=== PATIENT | female | born 1940 | race Caucasian/White ===

== ENCOUNTER 2016-07-25 09:37 | Emergency (ER) | payer MEDICARE, BC ==
--- NOTE | 2016-07-25 11:03 | UC ---
Abdominal Pain Female HPI - HPI Summary HPI Summary: patient has a significant history of diverticulitis. has had 4 episodes over the past 15 years. patient has had on and off pain for the past 5 months. Currently has not had any pain for the past two weeks. Bowel movements have been regular and normal. She was alos told by a former doctor in 1998 that she had a small hernia and did not know if maybe the pain was from the hernia. she has had no fever. no N/V/D. came into UC today becasue she heard the weather was going to be bad this week and didnt want to try to get to her doctors appointment this week. - History of Current Complaint Chief Complaint: UCAbdominalPain Stated Complaint: LEFTSIDE ABD PAIN Time Seen by Provider: 07/25/16 10:38 Hx Obtained From: Patient Hx Last Menstrual Period: n/a ?: No Onset/Duration: Still Present - comes and goes over the past few months Severity Initially: Mild Severity Currently: None Pain Intensity: 0 Pain Scale Used: 0-10 Numeric Location: Other - generally pain is left sided Radiates: No Character: Dull Aggravating Factor(s): Nothing Alleviating Factor(s): Nothing Associated Signs and Symptoms: Positive: Negative Allergies/Adverse Reactions: Allergies Allergy/AdvReac Type Severity Reaction Status Date / Time Ciprofloxacin Allergy Rash Verified 06/11/16 13:57 Naproxen Allergy Rash Verified 06/11/16 13:57 Hydrochlorothiazide AdvReac heart Verified 06/11/16 13:57 regularity changes Prednisone AdvReac BP too high Verified 06/11/16 13:57 Sulfa Drugs AdvReac cardiac Verified 06/11/16 13:57 problems PMH/Surg Hx/FS Hx/Imm Hx Previously Healthy: Yes Endocrine History Of: Denies: Diabetes, Hypothyroidism Cardiovascular History Of: Reports: Hypertension, Atrial Fibrillation - think she has history Denies: Pacemaker/ICD GI/ History Of: Denies: Renal Disease Cancer History Of: Denies: Breast Cancer - Surgical History Surgical History: Yes Surgery Procedure, Year, and Place: HYSTERECTOMY 2001. BIOPSY LEFT BREAST 1995 AND 2008. 3 COLONOSCOPIES. L Cataract 2013. 07/2014 thyroid nodule bx--benign - Family History Known Family History: Positive: Cardiac Disease, Hypertension - Social History Alcohol Use: None Substance Use Type: None Smoking Status (MU): Never Smoked Tobacco - Immunization History Most Recent Influenza Vaccination: [id number] Most Recent Tetanus Shot: 2014 Review of Systems Constitutional: Negative Skin: Negative Eyes: Negative ENT: Negative Respiratory: Negative Cardiovascular: Negative Gastrointestinal: Abdominal Pain Genitourinary: Negative Motor: Negative Neurovascular: Negative Musculoskeletal: Negative Neurological: Negative Psychological: Negative All Other Systems Reviewed And Are Negative: Yes Physical Exam Triage Information Reviewed: Yes Appearance: Well-Appearing, No Pain Distress, Well-Nourished Vital Signs: Initial Vital Signs Temp 98.1 F 07/25/16 10:01 Pulse 104 07/25/16 10:01 Resp 16 07/25/16 10:01 Pulse Ox 100 07/25/16 10:01 Vital Signs Reviewed: Yes Eye Exam: Normal Eyes: Positive: Conjunctiva Clear ENT Exam: Normal ENT: Positive: Normal ENT inspection, Pharynx normal, TMs normal Dental Exam: Normal Neck exam: Normal Neck: Positive: Supple, Nontender, No Lymphadenopathy Respiratory Exam: Normal Respiratory: Positive: Chest non-tender, Lungs clear, Normal breath sounds Cardiovascular Exam: Normal Cardiovascular: Positive: RRR, No Murmur, Pulses Normal Abdominal Exam: Normal Abdomen Description: Positive: Nontender, No Organomegaly, Soft Bowel Sounds: Positive: Present Musculoskeletal Exam: Normal Musculoskeletal: Positive: Strength Intact, No Edema, ROM Limited @ - left shoulder, from previous injury Neurological Exam: Normal Neurological: Positive: Alert, Muscle Tone Normal Psychological Exam: Normal Psychological: Positive: Age Appropriate Behavior Abd Pain Female Course/Dx - Course Course Of Treatment: hx obtianed, medications reviewed, at this time patients abdomen is slightly tender on palpation, hernia was not felt. patients pain is very come and go and states it is mild, not associated with eating or BM's. CBC was drawn to rule out WBC elevation. recommended follow up with PCP if symptoms return. - Differential Dx/Diagnosis Differential Diagnosis: Bowel Obstruction, Constipation, Diverticulitis, Irritable Bowel Syndrome, Pancreatitis, Pelvic Inflammatory Disease, Urinary Tract Infection Provider Diagnoses: abdominal pain. possible diverticulitis vs hernia Discharge - Discharge Plan Condition: Stable Disposition: HOME Patient Education Materials: Abdominal Pain (ED) Additional Instructions: A CBC was taken today to check for any infection. We will call you if treatment needs to be started. In the mean time, make sure you are eating and drinking well. Follow up with any increasing pain or symptoms.
[2016-07-26 11:04] LABS: Hematocrit 40 % (35-47); Hemoglobin 13.4 g/dl (12.0-16.0); Mean Corpuscular HGB Conc 33 g/dl (31-36); Mean Corpuscular Hemoglobin 29 pg (27-31); Mean Corpuscular Volume 87 fL (80-97); Mean Platelet Volume 8 um3 (7.4-10.4); Red Blood Count 4.62 10^6/ul (4.0-5.4); Red Cell Distribution Width 13 % (10.5-15); White Blood Count 4.8 10^3/ul (3.5-10.8)
== END 2016-07-25 11:11 | disposition home or self-care (01) ==
LOC: UCCORT 09:37
DX: R10.9 Unspecified abdominal pain (principal); Z98.42 Cataract extraction status, left eye; Z88.1 Allergy status to other antibiotic agents; Z88.2 Allergy status to sulfonamides; Z88.6 Allergy status to analgesic agent; Z88.8 Allergy status to other drugs, medicaments and biological substances
CPT/HCPCS: 36415; 85025; 99211; G0463

== ENCOUNTER 2016-08-22 14:04 | Emergency (ER) | payer MEDICARE, BC ==
[2016-08-22 15:14] VITALS: BP 156/60
--- NOTE | 2016-08-22 16:30 | UC ---
Complaint Female HPI - HPI Summary HPI Summary: 76yo F states she has had frequency and dysuria x 2 days. States she did the AZO test for leukocytes and it came back positive 2 days in a row. Pt brought the strip to show me, and indeed it is positive for leukocytes, negative for nitrites. - History Of Current Complaint Chief Complaint: UCGU Stated Complaint: URINARY COMPLAINT Time Seen by Provider: 08/22/16 16:23 Hx Obtained From: Patient Hx Last Menstrual Period: n/a Onset/Duration: Gradual Onset, Lasting Days, Still Present Severity Initially: Moderate Severity Currently: Moderate Pain Intensity: 5 Pain Scale Used: 0-10 Numeric Character: Burning Aggravating Factor(s): Nothing Alleviating Factor(s): Nothing Associated Signs And Symptoms: Positive: Negative Related Hx: Similar Episode/Dx as: - UTI - Allergies/Home Medications Allergies/Adverse Reactions: Allergies Allergy/AdvReac Type Severity Reaction Status Date / Time Ciprofloxacin Allergy Rash Verified 08/22/16 15:14 Naproxen Allergy Rash Verified 08/22/16 15:14 Hydrochlorothiazide AdvReac heart Verified 08/22/16 15:14 regularity changes Prednisone AdvReac BP too high Verified 08/22/16 15:14 Sulfa Drugs AdvReac cardiac Verified 08/22/16 15:14 problems PMH/Surg Hx/FS Hx/Imm Hx Previously Healthy: No - gout Endocrine History Of: Reports: Thyroid Disease - nodule Cardiovascular History Of: Reports: Hypertension, Atrial Fibrillation - think she has history GI/ History Of: Denies: Renal Disease Cancer History Of: Denies: Breast Cancer - Surgical History Surgical History: Yes Surgery Procedure, Year, and Place: HYSTERECTOMY 2001. BIOPSY LEFT BREAST 1995 AND 2008. 3 COLONOSCOPIES. L Cataract 2013. 07/2014 thyroid nodule bx--benign - Family History Known Family History: Positive: Cardiac Disease, Hypertension - Social History Alcohol Use: None Substance Use Type: None Smoking Status (MU): Never Smoked Tobacco - Immunization History Most Recent Influenza Vaccination: [id number] Most Recent Tetanus Shot: 2013 Review of Systems Constitutional: Negative Skin: Negative Eyes: Negative ENT: Negative Respiratory: Negative Cardiovascular: Negative Gastrointestinal: Negative Genitourinary: Dysuria, Urgency Motor: Negative Neurovascular: Negative Musculoskeletal: Negative Neurological: Negative Psychological: Negative All Other Systems Reviewed And Are Negative: Yes Physical Exam Triage Information Reviewed: Yes Appearance: No Pain Distress, Well-Nourished, Ill-Appearing Vital Signs: Initial Vital Signs Temp 97.7 F 08/22/16 15:09 Pulse 110 08/22/16 15:09 Resp 18 08/22/16 15:09 BP 156/60 08/22/16 15:09 Pulse Ox 100 08/22/16 15:09 tachycardia noted Vital Signs Reviewed: Yes Eyes: Positive: Conjunctiva Clear ENT: Positive: Normal ENT inspection, Hearing grossly normal. Negative: Muffled /hoarse voice Neck: Positive: Supple, Nontender, No Lymphadenopathy Respiratory: Positive: No respiratory distress Cardiovascular: Positive: RRR, Pulses Normal, Brisk Capillary Refill Abdomen Description: Positive: Nontender, No Organomegaly, Soft. Negative: CVA Tenderness (R), CVA Tenderness (L), Distended, Guarding, McBurney's Point Tenderness, Peritoneal Signs, Pulsatile Mass Bowel Sounds: Positive: Present Musculoskeletal: Positive: Strength Intact, ROM Intact Neurological: Positive: Alert, Muscle Tone Normal Psychological Exam: Normal Skin Exam: Normal Complaint Female Dx - Differential Dx/Diagnosis Differential Diagnosis/HQI/PQRI: Ureteral Stone, Urinary Tract Infection Provider Diagnoses: UTI. dysuria Discharge - Discharge Plan Condition: Stable Disposition: HOME Prescriptions: Nitrofurantoin Monohyd Macro [Macrobid] 100 mg PO BID #10 cap Patient Education Materials: Urinary Tract Infection in Women (ED), Dysuria (ED ) Referrals: Quique Curiel MD [Primary Care Provider] - Additional Instructions: We have sent a culture on your urine. We have given you a prescription for antibiotics even though the urine dipstick was negative on our test, but we are believing the two AZO tests that you did at home that showed leukocytes. We will contact you if you should stop the antibiotic. Follow up with Dr. Curiel if you still have symptoms.
== END 2016-08-22 17:04 | disposition home or self-care (01) ==
LOC: UCCORT 14:04
DX: N39.0 Urinary tract infection, site not specified (principal); Z88.1 Allergy status to other antibiotic agents; Z88.6 Allergy status to analgesic agent; Z88.2 Allergy status to sulfonamides; Z88.8 Allergy status to other drugs, medicaments and biological substances
CPT/HCPCS: 87086; 99212; G0463

== ENCOUNTER 2017-02-13 20:27 | Emergency (ER) | payer MEDICARE, BC ==
[2017-02-13] MEDS ORDERED: DOXYcycline CAP(*) 100 MG PO ONE (21:04)
[2017-02-13 21:08] VITALS: BP 140/58
--- NOTE | 2017-02-13 21:08 | UC ---
Skin Complaint HPI - HPI Summary HPI Summary: 76 y/o female presents to the urgent care c/o possible tick bite on her left arm today at 1700. She was outside in the yard by the apple tree where rain deers had been. She felt something bit her and she automatically remove it. She has HX of tick bite in 2014, and 2016 for which she got prophylactic treatment. She denies fever, SOB, chest pain, N/V/D, joint pains. Pt has not other complains - History of Current Complaint Chief Complaint: UCSkin Time Seen by Provider: 02/13/17 20:46 Stated Complaint: LEFT ARM SKIN COMPLAINT Hx Obtained From: Patient Hx Last Menstrual Period: n/a Onset/Duration: Sudden Onset, Lasting Hours, Still Present Skin Exposure Onset/Duration: Hours Ago Onset Severity: Mild Current Severity: Mild Pain Intensity: 0 Pain Scale Used: 0-10 Numeric Location: Discrete Character: Pruritus, Redness Aggravating: Touch Alleviating: Nothing Associated Signs & Symptoms: Negative: Nausea, Vomiting, Numbness, Fever, Tenderness Related History: Possible Reaction to: Insect - Allergy/Home Medications Allergies/Adverse Reactions: Allergies Allergy/AdvReac Type Severity Reaction Status Date / Time Ciprofloxacin Allergy Rash Verified 02/13/17 20:32 Naproxen Allergy Rash Verified 02/13/17 20:32 Hydrochlorothiazide AdvReac heart Verified 02/13/17 20:32 regularity changes Prednisone AdvReac BP too high Verified 02/13/17 20:32 Sulfa Drugs AdvReac cardiac Verified 02/13/17 20:32 problems Review of Systems Constitutional: Negative Skin: Rash - LF forearm with tick bite Eyes: Negative ENT: Negative Respiratory: Negative Cardiovascular: Negative Gastrointestinal: Negative Genitourinary: Negative Motor: Negative Neurovascular: Negative Musculoskeletal: Negative Neurological: Negative Psychological: Negative All Other Systems Reviewed And Are Negative: Yes PMH/Surg Hx/FS Hx/Imm Hx Previously Healthy: Yes Cardiovascular History: Hypertension - Surgical History Surgical History: Yes Surgery Procedure, Year, and Place: HYSTERECTOMY 2001. BIOPSY LEFT BREAST 1995 AND 2008. 3 COLONOSCOPIES. L Cataract 2013. 07/2014 thyroid nodule bx--benign - Family History Known Family History: Positive: Cardiac Disease, Hypertension, Diabetes - Social History Alcohol Use: None Substance Use Type: None Smoking Status (MU): Never Smoked Tobacco - Immunization History Most Recent Influenza Vaccination: [id number] Most Recent Tetanus Shot: 2014 Physical Exam Triage Information Reviewed: Yes Appearance: Well-Appearing, No Pain Distress, Well-Nourished Vital Signs: Initial Vital Signs Temp 98.8 F 02/13/17 20:34 Pulse 86 02/13/17 20:34 Resp 18 02/13/17 20:34 BP 140/58 02/13/17 20:34 Pulse Ox 99 02/13/17 20:34 Vital Signs Reviewed: Yes Eye Exam: Normal Eyes: Positive: Conjunctiva Clear - PERRLA, EOMI ENT Exam: Normal ENT: Positive: Normal ENT inspection, Hearing grossly normal, Pharynx normal, TMs normal Dental Exam: Normal Neck exam: Normal Neck: Positive: Supple, Nontender, No Lymphadenopathy Respiratory Exam: Normal Respiratory: Positive: Chest non-tender, Lungs clear, Normal breath sounds Cardiovascular Exam: Normal Cardiovascular: Positive: RRR, No Murmur, Pulses Normal, Brisk Capillary Refill Abdominal Exam: Normal Abdomen Description: Positive: Nontender, No Organomegaly, Soft. Negative: CVA Tenderness (R), CVA Tenderness (L) Bowel Sounds: Positive: Present Musculoskeletal Exam: Normal Musculoskeletal: Positive: Strength Intact, ROM Intact, No Edema Neurological Exam: Normal Psychological Exam: Normal Skin: Positive: rashes - LF with discrete erythema s/p tick bite non tender or swollen. Course/Dx - Course Course Of Treatment: 76 y/o female presents to the urgent care c/o possible tick bite on her left arm today at 1700. She was outside in the yard by the apple tree where rain deers had been. She felt something bit her and she automatically remove it. She ahs HX of tick bite in 2014, and 2015 for which she got prophylactic treatment. She denies fever, SOB, chest pain, N/V/D, joint pains. Pt has not other complains. HX obtained. Pt given prophylactic treatment of Doxyxycline 2 tabs PO for lyme disease. Pt tolerated well medication, educated on Lyme and if she develops eirthema migrans rash, fever, joint pains or WADE to return to the urgent care or f/u with her PCP for furhter treatment. Pt understood and agreed - Differential Diagnoses - Skin Complaint Differential Diagnoses: Allergic Reaction, Cellulitis, Contact Dermatitis, Tick Born Illness, Urticaria - Diagnoses Provider Diagnoses: 1- Tick bite Discharge - Discharge Plan Condition: Stable Disposition: HOME Patient Education Materials: Tick Bite (ED) Referrals: Quique Curiel MD [Primary Care Provider] - If Needed Additional Instructions: Please observe the area for the development or Erythema Migrans for upto 30 days following exposure. Components of the tick saliva can cause transient erythema that should not be confused with Erythema Migrans. Antibiotic prophylaxis with Doxycycline given to you today to prevent lyme Disease.. If you develop the Erythema Migrans rash and fever and joint pains please return to the urgent care or f/u with your PCP for further treatment.
== END 2017-02-13 21:21 | disposition home or self-care (01) ==
LOC: UCCORT 20:27
DX: S50.862A Insect bite (nonvenomous) of left forearm, initial encounter (principal); W57.XXXA Bitten or stung by nonvenomous insect and other nonvenomous arthropods, initial encounter; Y93.9 Activity, unspecified; Y99.9 Unspecified external cause status; Z88.6 Allergy status to analgesic agent; Z88.1 Allergy status to other antibiotic agents; Z88.2 Allergy status to sulfonamides; Z88.8 Allergy status to other drugs, medicaments and biological substances
CPT/HCPCS: 99211; A9270-GY; G0463

== ENCOUNTER 2017-11-03 19:55 | Emergency (ER) | payer MEDICARE, BC ==
[2017-11-03 20:41] VITALS: BP 153/68
[2017-11-03] MEDS ORDERED: DOXYcycline CAP(*) 100 MG PO ONE (21:19)
--- NOTE | 2017-11-03 21:24 | ED ---
Skin Complaint - HPI Summary HPI Summary: 77 yr old pulled a tick off of her left abdomen this evening that was just burrowing in. She did not have any engorgement. She would like the doxycycline prophylaxis. No other complaints. - History of Current Complaint Chief Complaint: UCSkin Time Seen by Provider: 11/03/17 21:10 Stated Complaint: TICK BITE Hx Last Menstrual Period: n/a Pain Intensity: 0 - Allergy/Home Medications Allergies/Adverse Reactions: Allergies Allergy/AdvReac Type Severity Reaction Status Date / Time ciprofloxacin Allergy Rash Verified 11/03/17 20:31 hydrochlorothiazide Allergy cardiac Verified 11/03/17 20:31 changes naproxen Allergy Rash Verified 11/03/17 20:31 prednisone Allergy hypertensio Verified 11/03/17 20:31 n Sulfa (Sulfonamide Allergy cardiac Verified 11/03/17 20:31 Antibiotics) changes PMH/Surg Hx/FS Hx/Imm Hx Endocrine/Hematology History: Reports: Hx Thyroid Disease - nodule Denies: Hx Diabetes, Hx Anemia Cardiovascular History: Reports: Hx Hypertension Denies: Hx Pacemaker/ICD GI History: Reports: Other GI Disorders - DIVERTICULITIS- LAST EPISODE-11/2013 Denies: Hx Jaundice History: Denies: Hx Renal Disease Musculoskeletal History: Reports: Hx Arthritis - "ALL OVER", Hx Bursitis - HX OF , Other Musculoskeletal History - OSTEOPENIA- LEFT HIP Sensory History: Reports: Hx Cataracts - LEFT EYE, Hx Contacts or Glasses - GLASSES Denies: Hx Hearing Aid Opthamlomology History: Reports: Hx Cataracts - LEFT EYE, Hx Contacts or Glasses - GLASSES Psychiatric History: Denies: Hx Panic Disorder - Cancer History Cancer Type, Location and Year: basal cell cancer right eyebrow 2011 Hx Chemotherapy: No Hx Radiation Therapy: No - Surgical History Surgery Procedure, Year, and Place: HYSTERECTOMY 2001. BIOPSY LEFT BREAST 1995 AND 2008. 3 COLONOSCOPIES. L Cataract 2013. 07/2014 thyroid nodule bx--benign Hx Anesthesia Reactions: No Infectious Disease History: No Infectious Disease History: Denies: Hx Clostridium Difficile, Traveled Outside the [place] in Last 30 Days - Family History Known Family History: Positive: Cardiac Disease, Hypertension, Diabetes - Social History Alcohol Use: None Substance Use Type: Reports: None Smoking Status (MU): Never Smoked Tobacco Review of Systems Constitutional: Negative Positive: Other - tick bite All Other Systems Reviewed And Are Negative: Yes Physical Exam Triage Information Reviewed: Yes Vital Signs On Initial Exam: Initial Vitals Temp Pulse Resp BP Pulse Ox 98.1 F 92 18 153/68 100 11/03/17 20:32 11/03/17 20:32 11/03/17 20:32 11/03/17 20:32 11/03/17 20:32 Vital Signs Reviewed: Yes Appearance: Positive: Well-Appearing, No Pain Distress Skin: Positive: Other - abdominal wall without any redness in area where she removed the tick Eyes: Positive: EOMI ENT: Positive: Normal ENT inspection Neck: Positive: Nontender Respiratory/Lung Sounds: Positive: Clear to Auscultation, Breath Sounds Present Cardiovascular: Positive: RRR. Negative: Murmur Abdomen Description: Positive: Nontender Musculoskeletal: Positive: Strength/ROM Intact Neurological: Positive: Sensory/Motor Intact, Alert, Oriented to Person Place, Time, CN Intact II-III Psychiatric: Positive: Normal - [place] Coma Scale Best Eye Response: 4 - Spontaneous Best Motor Response: 6 - Obeys Commands Best Verbal Response: 5 - Oriented Coma Scale Total: 15 Diagnostics - Vital Signs Vital Signs Temp Pulse Resp BP Pulse Ox 11/03/17 20:32 98.1 F 92 18 153/68 100 - Laboratory Lab Statement: Any lab studies that have been ordered have been reviewed, and results considered in the medical decision making process. Course/Dx - Course Course Of Treatment: 77 yr old with tick bite. Doxy 200 given. - Diagnoses Provider Diagnoses: Tick bite of abdominal wall, Hypertension Discharge - Sign-Out/Discharge Documenting (check all that apply): Discharge/Admit/Transfer - Discharge Plan Condition: Good Disposition: HOME Patient Education Materials: Tick Bite (ED), Hypertension (ED) Referrals: Quique Curiel MD [Primary Care Provider] - - Billing Disposition and Condition Condition: GOOD Disposition: HOME
== END 2017-11-03 21:24 | disposition home or self-care (01) ==
LOC: UCCORT 19:55
DX: S30.861A Insect bite (nonvenomous) of abdominal wall, initial encounter (principal); W57.XXXA Bitten or stung by nonvenomous insect and other nonvenomous arthropods, initial encounter; Y92.9 Unspecified place or not applicable; I10 Essential (primary) hypertension
CPT/HCPCS: 99212; A9270-GY; G0463

== ENCOUNTER 2017-12-09 10:46 | Emergency (ER) | payer MEDICARE, BC ==
--- OUTSIDE RECORDS SUMMARY | 2017-12-09 11:00 | XMS REPORT ---
:1940 External Reference #:[id number] Author Organization [facility] Address [address] [place] [address] Phone [phone] Care Team Providers Name Role Phone Quique Curiel M.D. 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 Primary Care Physician Unavailable Payers Type Date Identification Numbers Payment Provider Subscriber Medicare Primary Policy Number: [id number] Medicare Keith Hebert PayID: [id number] [address] [facility] [place] [address] Commercial Policy Number: [id number] [facility] Keith Hebert PayID: [id number] [address] [address] [place] [address] Problems Description No Information Family History Date Family Member(s) Problem(s) Comments Father due to bulpar palsy () Mother due to Heart Disease () Mother 87 Social History Type Date Description Comments Cigarette Use Never Smoked Cigarettes ETOH Use Rare Use Of Alcohol Recreational Drug Use Never Used Drugs Allergies, Adverse Reactions, Alerts Date Description Reaction Status Severity Comments 11/25/2017 Cipro Urticaria active Moderate 11/25/2017 Naproxen Urticaria active Moderate 11/25/2017 Prednisone elevated bp active Moderate 11/25/2017 Hydrochlorothiazide low potassium active Moderate 11/25/2017 sulfa affects heart rythym active Moderate Medications Medication Date Status Form Strength Qnty SIG Indications Ordering Provider Amlodipine Active Tablets 10mg 1 by Unknown Besylate 00 mouth every day Allopurinol Active Tablets 100mg 1 by Unknown 00 mouth every day Lisinopril Active Tablets 40mg 1 by Unknown 00 mouth every day Vital Signs Date Vital Result Comment 11/25/2017 Weight 155.00 lb Height 60 inches 5'0" BMI (Body Mass Index) 30.3 kg/m2 BP Systolic 147 mmHg BP Diastolic 81 mmHg Heart Rate 106 /min O2 % BldC Oximetry 99 % Body Temperature 97.6 F Pain Level 0 Results Description No Information Procedures Description No Information Plan of Care No Information Available
--- OUTSIDE RECORDS SUMMARY | 2017-12-09 11:00 | XMS REPORT ---
:1940 External Reference #:[id number] Author Organization [facility] Address [address] [place] [address] Phone [phone] Care Team Providers Name Role Phone Quique Curiel M.D. Primary Care Physician Unavailable Payers Type Date Identification Numbers Payment Provider Subscriber Medicare Primary Policy Number: [id number] [facility] Keith Hebert PayID: [id number] [address] [place] [address] Medigap Part B Effective: Policy Number: BS [place] [employer] Keith Hebert 1999 [id number] Group Number: [id number] [address] [address] PayID: [id number] [place] [id number] Problems Date Description Provider Status Onset: Basal cell carcinoma of skin Active Onset: Diverticulitis Active Onset: Atrial fibrillation Active Onset: 12/19/2014 Nuclear senile cataract Caleb Melvin M.D. Active Onset: 12/19/2014 Pseudophakia Caleb Melvin M.D. Active Onset: 03/14/2015 Blepharitis Chantel Stevens O.D. Active Onset: 12/21/2016 Other secondary cataract, left eye Caleb Melvin M.D. 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 Retired ETOH Use Denies alcohol use Smoking Patient has never smoked Recreational Drug Use Denies Drug Use Daily Caffeine Consumes on average 16oz of soda per day Allergies, Adverse Reactions, Alerts Date Description Reaction Status Severity Comments 12/17/2014 Cipro Urticaria active 12/17/2014 Naproxen Urticaria active 12/17/2014 Sulfa Antibiotics Urticaria active 12/17/2014 Prednisone increase BP active 12/17/2014 Hydrochlorothiazide active Medications Medication Date Status Form Strength Qnty SIG Indications Ordering Provider Vitamin D Active Tablets 1000Unit 400 mg Chantel Campbell (Cholecalcifer 015 Rodney, ol) O.D. Warm Active three Chantel Campbell Compresses 015 times a [place], day O.D. Amlodipine 0 Active Tablets 10mg TK 1 T PO Unknown Besylate 000 qd. Lisinopril 0 Active Tablets 40mg TK 1 T PO Unknown 000 qd Allopurinol 0 Active Tablets 100mg TK 1 T PO Unknown 000 qd. Calcium 600 0 Active Tablets 600mg Unknown 000 Tobradex Hx Ointment 0.3-0.1% 1units apply to 373.00 Chantel K. 015 - all four [place], eyelid O.D. 015 margins each night before bed for 2 weeks Maxitrol Hx Ointment 3.5-72015- 3.500g apply 1/4' Chantel K. 015 - 0.1 m to all [place], lids every O.D. 016 night at bedtime x 3 weeks Doxycycline Hx Capsules 100mg Take 2 Unknown Hyclate 000 - Capsules By Mouth 015 AT Once Results Description No Information Procedures Date CPT Code Description Status 06/07/2017 88613 Est Patient Comprehensive Exam Completed 12/21/2016 87022 Determination Of Refractive State Completed 12/21/2016 12261 Est Patient Comprehensive Exam Completed 12/22/2015 27469 Est Patient Comprehensive Exam Completed 03/20/2015 94830 Est Patient Intermediate Exam Completed 12/19/2014 73109 Est Patient Intermediate Exam Completed 04/10/2014 73555 Extracapsular Cataract Extraction W/Intraocular Lens Completed 03/12/2014 47490 Ophthalmic Biometry Completed 03/12/2014 98791 Est Patient Comprehensive Exam Completed 08/07/2013 33730 Determination Of Refractive State Completed 08/07/2013 72137 Est Patient Comprehensive Exam Completed 01/02/2013 54060 Est Patient Comprehensive Exam Completed 01/02/2013 02403 Determination Of Refractive State Completed 12/28/2011 79595 Determination Of Refractive State Completed 12/28/2011 56983 Est Patient Comprehensive Exam Completed 12/23/2010 50331 Est Patient Comprehensive Exam Completed 11/19/2009 57841 Est Patient Comprehensive Exam Completed 06/10/2008 17813 Est Patient Intermediate Exam Completed 11/14/2007 06491 Determination Of Refractive State Completed 11/14/2007 22751 Est Patient Comprehensive Exam Completed 10/13/2005 39469 Determination Of Refractive State Completed 10/13/2005 43803 Est Patient Comprehensive Exam Completed Encounters Type Date Location Provider CPT E/M Dx Office Visit 03/14/2015 11:45a Caleb Melvin MD, Chantel Stevens O.D. 40892 373.00 Plan of Care 12/06/2017 - Caleb Melvin M.D.H25.11 Age-related nuclear cataract, right eyeComments:Smoking can increase the risk of developing or worsening any eye related disease, as well as affect your overall health. If you are a smoker, we strongly recommend that you quit.If you are not a smoker, we strongly recommend that you do not start. You have been diagnosed with a cataract in the righteye. If you are happy with your vision as it is, we will see you at your next scheduled appointment.If you feel like your vision is getting worse before your scheduled appointment, please call Lyubov Summers at .Follow up:6 Month Follow Up Diagnostic Refraction You can expect to have your eyes dilated at your next visit. If Dr. Melvin orders any additional testing , it may require extra time. We recommend that you bring sunglasses, as dilation drops often make you light sensitive until they wear off. We always recommendyou bring someone to drive you home if you are uncomfortable driving with your eyes dilated. If you have any questions before your next visit, feel free to call our office at .H26.492 Other secondary cataract, left eyeComments:There is clouding in the sac that holds your artificial lens in your left eye. We will schedule you an appointment for the YAG Capsulotomy laser with Dr. Melvin. Please read the pamphlet that has been printed out for you. We recommend you bring someone to drive you home.Follow up:Schedule YAG OSZ96.1 Presence of intraocular lensComments:The artificial lens implant in your left eye appears to be stable at this time.
[2017-12-09 11:21] VITALS: BP 147/63
--- NOTE | 2017-12-09 13:37 | UC ---
Abdominal Pain Female HPI - HPI Summary HPI Summary: Patient presents complaining of several months of constant upper abdominal pain and bloating. Also complains of early satiety. No nausea/vomiting/diarrhea. Has a history of diverticulitis but states this feels different. No fever. She denies any night sweats, weight loss or unexplained bruising. She complains of some gurgling noises in her left abdomen on occasion. Appetite is decreased. She has a history of benign thyroid nodules and is scheduled for another FNA with Dr. Winters later this month. PCP Dr. Curiel. - History of Current Complaint Chief Complaint: UCAbdominalPain Stated Complaint: STOMACH ACHE Time Seen by Provider: 12/09/17 12:18 Hx Obtained From: Patient Hx Last Menstrual Period: n/a Onset/Duration: Gradual Onset, Lasting Weeks, Still Present Timing: Constant Severity Initially: Moderate Severity Currently: Moderate Pain Intensity: 2 Pain Scale Used: 0-10 Numeric Location: Other - UPPER ABD Radiates: No Aggravating Factor(s): Nothing Alleviating Factor(s): Nothing Associated Signs and Symptoms: Positive: Decreased Appetite. Negative: Fever, Back Pain, Constipation, Blood in Stool, Urinary Symptoms, Nausea Allergies/Adverse Reactions: Allergies Allergy/AdvReac Type Severity Reaction Status Date / Time ciprofloxacin Allergy Rash Verified 12/09/17 11:16 hydrochlorothiazide Allergy cardiac Verified 12/09/17 11:16 changes naproxen Allergy Rash Verified 12/09/17 11:16 prednisone Allergy hypertensio Verified 12/09/17 11:16 n Sulfa (Sulfonamide Allergy cardiac Verified 12/09/17 11:16 Antibiotics) changes PMH/Surg Hx/FS Hx/Imm Hx - Additional Past Medical History Additional PMH: GOUT, DIVERTICULITIS Endocrine History: Thyroid Disease - BENIGN NODULES Cardiovascular History: Hypertension - Surgical History Surgical History: Yes Surgery Procedure, Year, and Place: HYSTERECTOMY 2001. BIOPSY LEFT BREAST 1995 AND 2008. 3 COLONOSCOPIES. L Cataract 2013. 07/2014 thyroid nodule bx--benign - Family History Known Family History: Positive: Cardiac Disease, Hypertension, Diabetes Family History: PANCREATIC CANCER MATERNAL AUNT, COUSIN - Social History Alcohol Use: None Substance Use Type: None Smoking Status (MU): Never Smoked Tobacco - Immunization History Most Recent Influenza Vaccination: [id number] Most Recent Tetanus Shot: 2013 Review of Systems Constitutional: Negative Skin: Negative Respiratory: Negative Cardiovascular: Negative Gastrointestinal: Abdominal Pain, Other - bloating Genitourinary: Negative All Other Systems Reviewed And Are Negative: Yes Physical Exam Triage Information Reviewed: Yes Appearance: Well-Appearing, No Pain Distress, Well-Nourished Vital Signs: Initial Vital Signs Temp 98.3 F 12/09/17 11:11 Pulse 100 12/09/17 11:11 Resp 16 12/09/17 11:11 BP 147/63 12/09/17 11:11 Pulse Ox 100 12/09/17 11:11 Vital Signs Reviewed: Yes Eyes: Positive: Conjunctiva Clear ENT: Positive: Hearing grossly normal Neck: Positive: Supple Respiratory Exam: Normal Cardiovascular: Positive: RRR, Murmur:Sys:Grade _?_/ - 2/6 Abdomen Description: Positive: Soft, Distended - MILDLY, Other: - TTP DIFFUSELY BUT WORSE ACROSS UPPER ABDOMEN. NO REBOUND OR RIGIDITY Bowel Sounds: Positive: Present Musculoskeletal: Positive: No Edema Neurological: Positive: Alert Psychological: Positive: Age Appropriate Behavior Skin: Negative: rashes Diagnostics - Laboratory Diagnostic Studies Completed/Ordered: URINE DIP UNREMARKABLE - Radiology CT ABD/PELVIS W/O CONTRAST Xray Interpretation: Positive (See Comments) - 1. DIVERTICULOSIS. 2. ATHEROSCLEROSIS. 3. HIATAL HERNIA. Radiology Interpretation Completed By: Radiologist Abd Pain Female Course/Dx - Differential Dx/Diagnosis Provider Diagnoses: HIATAL HERNIA Discharge - Sign-Out/Discharge Documenting (check all that apply): Discharge/Admit/Transfer - Discharge Plan Condition: Stable Disposition: HOME Patient Education Materials: Hiatal Hernia (ED) Referrals: Francis Cox MD [Medical Doctor] - If Needed Quique Curiel MD [Primary Care Provider] - 2 Weeks Additional Instructions: YOUR CT SCAN SHOWS YOU HAVE A MODERATE HIATAL HERNIA. THIS MAY BE CONTRIBUTING TO YOUR SYMPTOMS. AVOID CARBONATED BEVERAGES. EAT SLOWLY. STAY UPRIGHT AT LEAST 30 MINUTES AFTER EATING. EAT SMALLER, MORE FREQUENT MEALS OPPOSED TO LARGE INFREQUENT MEALS. AVOID OTHER POSSIBLE TRIGGER FOODS - GREASY, SPICY, ACIDIC FOODS. CAFFEINE, ALCOHOL. IF YOU DO NOT IMPROVE WITH CONSERVATIVE MEASURES FOLLOW-UP WITH YOUR PCP OR SURGERY TO DISCUSS MORE AGGRESSIVE TREATMENT OPTIONS. LABS DRAWN TODAY TO EVALUATE BLOOD COUNT, METABOLIC PANEL, THYROID AND PANCREAS. WE WILL CALL YOU WITH ANY ABNORMALITIES. - Billing Disposition and Condition Condition: STABLE Disposition: Home
--- NOTE | 2017-12-09 14:01 | RAD ---
CLINICAL HISTORY: upper abd pain, bloating COMPARISON: None TECHNIQUE: Multiple contiguous axial CT scans were obtained of the abdomen and pelvis, without intravenous contrast enhancement. Coronal and sagittal multiplanar reformations are submitted for review. Oral contrast was not administered. FINDINGS: The study is limited by the lack of intravenous contrast. This limits evaluation of the solid organs and vasculature. LUNG BASES: The lung bases are clear. LIVER: The liver is normal in shape, size, contour, and attenuation. BILE DUCTS: There is no intrahepatic or extrahepatic biliary dilatation. GALLBLADDER: The gallbladder is normal, without pericholecystic inflammatory change. PANCREAS: The pancreas is normal, without mass or ductal dilatation. SPLEEN: Normal in size and appearance. UPPER GI TRACT: Evaluation of the gastrointestinal tract is limited by incomplete gastric distention. There is a moderate sliding hiatal hernia. SMALL BOWEL AND MESENTERY: The small bowel is normal in contour, course, and caliber. There is no obstruction or dilatation. COLON: There is extensive diverticulosis of the transverse, descending, and sigmoid colon. There is no significant pericolonic inflammatory change. ADRENALS: Normal bilaterally. KIDNEYS: Simple renal cysts are noted. BLADDER: The bladder is smooth in contour. PELVIC ORGANS: The pelvic organs are not visualized. AORTA: There is calcific atherosclerotic disease of the abdominal aorta and its branches, without aneurysmal dilatation IVC: Unremarkable LYMPH NODES: There is no lymphadenopathy by size criteria. ABDOMINAL WALL: There is no evidence for abdominal wall hernia. BONES AND SOFT TISSUES: Degenerative changes are noted. OTHER: None IMPRESSION: 1. DIVERTICULOSIS. 2. ATHEROSCLEROSIS. 3. HIATAL HERNIA.
[2017-12-09 19:05] LABS: ABS Basophils 0 10^3/ul (0-0.2); ABS Eosinophils 0.2 10^3/ul (0-0.6); ABS Lymphocytes 2.1 10^3/ul (1.0-4.8); ABS Monocytes 0.5 10^3/ul (0-0.8); ABS Neutrophils 3.5 10^3/ul (1.5-7.7); ABS Nucleated RBC 0 10^3/ul; Eosinophil % 2.6 % (0-6); Hematocrit 42 % (35-47); Hemoglobin 14.2 g/dl (12.0-16.0); Lymphocyte % 32.9 % (25-47); Mean Corpuscular HGB Conc 34 g/dl (31-36); Mean Corpuscular Hemoglobin 29 pg (27-31); Mean Corpuscular Volume 86 fL (80-97); Mean Platelet Volume 8.2 um3 (7.4-10.4); Nucleated Red Blood Cells % 0.2; Platelet Count 271 10^3/ul (150-450); Red Cell Distribution Width 15 % (10.5-15); White Blood Count 6.3 10^3/ul (3.5-10.8)
[2017-12-09 19:21] LABS: EGFR Non-African American 77.7 (>60)
--- NOTE | 2017-12-10 08:58 | PN ---
Progress Note - Progress Note Date of Service: 12/10/17 Note: Reviewed CBC, CMP, TSH non concerning no change migel 12/10/2017
== END 2017-12-09 14:35 | disposition home or self-care (01) ==
LOC: UCCORT 10:46
DX: K44.9 Diaphragmatic hernia without obstruction or gangrene (principal); Z88.2 Allergy status to sulfonamides; Z88.1 Allergy status to other antibiotic agents; Z88.5 Allergy status to narcotic agent; Z88.8 Allergy status to other drugs, medicaments and biological substances; M10.9 Gout, unspecified; I10 Essential (primary) hypertension; Z87.19 Personal history of other diseases of the digestive system
CPT/HCPCS: 36415; 74176; 80053; 81003; 83690; 84443; 85025; 99211; G0463

== ENCOUNTER 2018-02-28 18:43 | Emergency (ER) | payer MEDICARE, BC ==
[2018-02-28 19:04] VITALS: BP 148/65
--- NOTE | 2018-02-28 19:20 | UC ---
Skin Complaint HPI - HPI Summary HPI Summary: Patient noted a rash on her back Tuesday while mowing her lawn. She states that at first SHE thought something bit her on the back and then later noted more of a rash to her back. She states that she had been mowing under some trees that were hanging down and sometimes some of the stuff falls off so she wonders if might be an irritation from that. She denies any associated current or recent illness or new exposures other than with mowing her lawn. There is no associated fever and it is mildly itchy. Patient denies having this rash anywhere else on her body. - History of Current Complaint Chief Complaint: UCRash Time Seen by Provider: 02/28/18 19:02 Stated Complaint: SKIN CONCERN (BACK) Hx Obtained From: Patient Hx Last Menstrual Period: n/a Timing: Constant Pain Intensity: 0 Aggravating Factor(s): Nothing Alleviating Factor(s): Nothing Associated Signs & Symptoms: Positive: Rash. Negative: Fever, Red Streaks, Joint Swelling - Allergy/Home Medications Allergies/Adverse Reactions: Allergies Allergy/AdvReac Type Severity Reaction Status Date / Time ciprofloxacin Allergy Rash Verified 02/28/18 19:05 naproxen Allergy Rash Verified 02/28/18 19:05 hydrochlorothiazide AdvReac cardiac Verified 02/28/18 19:05 changes prednisone AdvReac hypertensio Verified 02/28/18 19:05 n Sulfa (Sulfonamide AdvReac cardiac Verified 02/28/18 19:05 Antibiotics) changes Review of Systems Constitutional: Negative Skin: Rash Eyes: Negative ENT: Negative Respiratory: Negative Cardiovascular: Negative Gastrointestinal: Negative Genitourinary: Negative Motor: Negative Neurovascular: Negative Musculoskeletal: Negative Neurological: Negative Psychological: Negative Is Patient Immunocompromised?: No All Other Systems Reviewed And Are Negative: Yes PMH/Surg Hx/FS Hx/Imm Hx - Additional Past Medical History Additional PMH: gout, skin CA Cardiovascular History: Hypertension - Surgical History Surgical History: Yes Surgery Procedure, Year, and Place: HYSTERECTOMY 2001. BIOPSY LEFT BREAST 1995 AND 2008. 3 COLONOSCOPIES. L Cataract 2013. 07/2014 thyroid nodule bx--benign - Family History Known Family History: Positive: Cardiac Disease, Hypertension, Diabetes Family History: PANCREATIC CANCER MATERNAL AUNT, COUSIN - Social History Occupation: Retired Alcohol Use: None Substance Use Type: None Smoking Status (MU): Never Smoked Tobacco - Immunization History Most Recent Influenza Vaccination: [id number] Most Recent Tetanus Shot: 2014 Vaccination Up to Date: Yes Physical Exam Triage Information Reviewed: Yes Appearance: Well-Appearing Vital Signs: Initial Vital Signs Temp 99.1 F 02/28/18 18:56 Pulse 112 02/28/18 18:56 Resp 18 02/28/18 18:56 BP 148/65 02/28/18 18:56 Pulse Ox 99 02/28/18 18:56 Eyes: Positive: Conjunctiva Clear ENT: Positive: Normal ENT inspection Neck: Positive: Supple, Nontender, No Lymphadenopathy Respiratory: Positive: Lungs clear, Normal breath sounds Cardiovascular: Positive: RRR, No Murmur. Negative: Tachycardia Abdomen Description: Positive: Nontender, No Organomegaly, Soft Bowel Sounds: Positive: Present Musculoskeletal: Positive: ROM Intact, No Edema Neurological: Positive: Alert Psychological: Positive: Age Appropriate Behavior Skin Exam: Normal Skin: Positive: rashes - Patient has scattered pink papules on her back. There are no pustules, no vesicles, no burrows and no scaling. There are no petechial lesions. The rash does malika. Additional inspection of the rest the patient's body reveals that there is no additional rash. Course/Dx - Course Course Of Treatment: The rash does not appear to be fungal, bacterial or any type of infestation. Given contact with the trees on her back while mowing lawn , this may be contact dermatitis. Patient prefers to avoid medications whenever possible thus I have suggested a consult baths for the itch and over- the-counter Benadryl as needed for the itching per the label. Identifies she follow-up closely with her primary care for recheck and of this week and follow up immediately for any change or worsening. Patient is comfortable with plan. BP elevated but hx HTN that is tx - Diagnoses Provider Diagnoses: Acute rash on back Discharge - Sign-Out/Discharge Documenting (check all that apply): Patient Departure All imaging exams completed and their final reports reviewed: No Studies - Discharge Plan Condition: Stable Disposition: HOME Patient Education Materials: Acute Rash (ED) Referrals: Quique Curiel MD [Primary Care Provider] - 3 Days Additional Instructions: CONSIDER EPSON SALT BATHS FOR ITCH. YOU MAY TAKE BENADRYL PER LABEL NEEDED FOR ITCHING - Billing Disposition and Condition Condition: STABLE Disposition: Home
== END 2018-02-28 19:53 | disposition home or self-care (01) ==
LOC: UCCORT 18:43
DX: R21 Rash and other nonspecific skin eruption (principal); I10 Essential (primary) hypertension; M10.9 Gout, unspecified; Z88.1 Allergy status to other antibiotic agents; Z88.5 Allergy status to narcotic agent; Z88.8 Allergy status to other drugs, medicaments and biological substances; Z88.2 Allergy status to sulfonamides
CPT/HCPCS: 99211; G0463

== ENCOUNTER 2018-10-17 10:30 | Emergency (ER) | payer MEDICARE, BC ==
[2018-10-17 10:50] VITALS: BP 162/68
--- NOTE | 2018-10-17 11:18 | UC ---
Throat Pain/Nasal Bill HPI - HPI Summary HPI Summary: 78 -year-old female who had a white spot in the back of her throat last evening then after she ate some food it was gone and she wanted that checked today. She denies any sore throat, no recent illness, no fever or chills. 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 Pain Intensity: 0 Cough: None Associated Signs & Symptoms: Positive: Negative - Allergies/Home Medications Allergies/Adverse Reactions: Allergies Allergy/AdvReac Type Severity Reaction Status Date / Time ciprofloxacin Allergy Rash Verified 10/17/18 10:46 naproxen Allergy Rash Verified 10/17/18 10:46 hydrochlorothiazide AdvReac cardiac Verified 10/17/18 10:46 changes prednisone AdvReac hypertensio Verified 10/17/18 10:46 n Sulfa (Sulfonamide AdvReac cardiac Verified 10/17/18 10:46 Antibiotics) changes Home Medications: Home Medications Cholecalciferol TAB* [Vitamin D TAB*] 800 unit PO DAILY 10/17/18 [History Confirmed 10/17/18] PMH/Surg Hx/FS Hx/Imm Hx Previously Healthy: Yes - Surgical History Surgical History: Yes Surgery Procedure, Year, and Place: HYSTERECTOMY 2001. BIOPSY LEFT BREAST 1995 AND 2008. 3 COLONOSCOPIES. L Cataract 2013. 07/2014 thyroid nodule bx--benign - Family History Known Family History: Positive: Cardiac Disease, Hypertension, Diabetes Family History: PANCREATIC CANCER MATERNAL AUNT, COUSIN - Social History Alcohol Use: None Substance Use Type: None Smoking Status (MU): Never Smoked Tobacco - Immunization History Most Recent Influenza Vaccination: [id number] Most Recent Tetanus Shot: 2014 Vaccination Up to Date: Yes Review of Systems All Other Systems Reviewed And Are Negative: Yes ENT: Positive: Other - Patient noticed a white spot in her right tonsil last evening which then disappeared after she ate some food. Is Patient Immunocompromised?: No Physical Exam Triage Information Reviewed: Yes Appearance: Well-Appearing, No Pain Distress, Well-Nourished Vital Signs: Initial Vital Signs Temp 97.6 F 10/17/18 10:47 Pulse 112 10/17/18 10:47 Resp 20 10/17/18 10:47 BP 162/68 10/17/18 10:47 Pulse Ox 99 10/17/18 10:47 Vital Signs Reviewed: Yes Eye Exam: Normal ENT Exam: Normal Neck exam: Normal Respiratory Exam: Normal Cardiovascular Exam: Normal Bowel Sounds: Positive: Present Throat Pain/Nasal Course/Dx - Course Course Of Treatment: Patient basically needed reassurance that this was not a throat infection however rapid strep test was done which was negative. - Differential Dx/Diagnosis Provider Diagnosis: Tonsillolith Discharge - Sign-Out/Discharge Documenting (check all that apply): Patient Departure All imaging exams completed and their final reports reviewed: No Studies - Discharge Plan Condition: Good Disposition: HOME Patient Education Materials: Pharyngitis (ED) Referrals: Quique Curiel MD [Primary Care Provider] - Additional Instructions: What You had in the back of her throat was a tonsillolith. These are not infectious and will usually go away on their own. Definite follow-up with your primary care provider as needed. - Billing Disposition and Condition Condition: GOOD Disposition: Home - Attestation Statements Provider Attestation: I was available for consult. This patient was seen by the WILLIAM. The patient was not presented to, seen by, or examined by me. -Earnest
== END 2018-10-17 11:23 | disposition home or self-care (01) ==
LOC: UCCORT 10:30
DX: J35.8 Other chronic diseases of tonsils and adenoids (principal); Z88.3 Allergy status to other anti-infective agents; Z88.6 Allergy status to analgesic agent; Z88.2 Allergy status to sulfonamides; Z88.8 Allergy status to other drugs, medicaments and biological substances
CPT/HCPCS: 87651; 99211; G0463